=== PATIENT | female | born 1965 | race Caucasian/White ===

== ENCOUNTER 2021-01-05 06:05 | Day surgery (SDC) | payer OTHER ==
[~2021-01-05] VITALS: Ht 162.6 cm; Wt 84.4 kg
[2021-01-05 06:28] LABS: BASOPHILS 0.4 % (0-2); EOSINOPHILS 2.6 % (0-7); HEMATOCRIT 41.3 % (36.0-48.0); LYMPHOCYTES 30.7 % (15-50); MCH 32.2 pg (26.0-34.0); MCHC 33.9 g/dL (31.0-37.0); MCV 94.9 fL (80.0-100.0); MEAN PLATELET VOLUME 7.1 fL (7.4-10.4); MONOCYTES 7.2 % (2-11); NEUTROPHILS 59.1 % (40-80); PLATELET COUNT 318 10x3/uL (130-400); RBC 4.35 10x6/uL (4.00-5.40); RDW 12.8 % (11.5-14.5); WBC 6.9 10x3/uL (4.8-10.8)
[2021-01-05 06:32] LABS: ANION GAP 11.3 mmol/L (8-16); CALCIUM 8.7 mg/dL (8.5-10.1); CREATININE - SERUM 0.9 mg/dL (0.6-1.3); POTASSIUM - SERUM 4.3 mmol/L (3.5-5.1)
[2021-01-05] MEDS ORDERED: ESTRACE 0.5 MG0.5 MG PO (06:50)
[2021-01-05] MEDS ORDERED: METOPROLOL TART25 MG PO (06:50)
[2021-01-05 06:54] VITALS: BP 151/61; Ht 162.6 cm; Wt 84.4 kg
--- NOTE | 2021-01-05 10:38 | NUR ---
1025 IV DC'D. CATHETER TIP INTAKE. NO BLEEDING,REDNESS OR SWELLING AT SITE. COBAN DRESSING APPLIED. 1030 DISCHARGE INSTRUCTIONS REVIEWED WITH PT AND HER . BOTH VOICE UNDERSTANDING OF THESE INSTRUCTIONS.
== END 2021-01-05 10:38 | disposition home or self-care (01) ==
LOC: D.OPS
PROVIDERS: Anesthesiology; ATTEND Obstetrics & Gynecology Maternal & Fetal Medicine
DX: R10.2 Pelvic and perineal pain (principal); N94.10 Unspecified dyspareunia